=== PATIENT | male | born 1975 | race Caucasian/White ===

== ENCOUNTER 2018-11-09 11:30 | Day surgery (SDC) | payer BC ==
[~2018-11-09 11:30] MED LIST: CEFAZOLIN 2 GM/50 ML (PMX) 50 ML (FOR WT < 120 KG) IVPB
[2018-11-09] MEDS: LACTATED RINGER'S 1,000 ML IV (12:41)
[2018-11-09] MEDS ORDERED: GLYCOPYRROLATE 0.4 MG INJ (13:34)
[2018-11-09] MEDS ORDERED: PROPOFOL 20 ML (13:34)
[2018-11-09] MEDS ORDERED: CEFAZOLIN 1 GM INJ (13:34)
[2018-11-09] MEDS ORDERED: ROCURONIUM 50 MG INJ (13:34)
[2018-11-09] MEDS ORDERED: NEOSTIGMINE 3 MG/3 ML SYRINGE (13:34)
[2018-11-09] MEDS ORDERED: MIDAZOLAM 1 MG/ML 2 ML INJ (13:36)
[2018-11-09] MEDS ORDERED: FENTAnyl 50 MCG/ML VIAL ×2 (13:36→14:29)
[2018-11-09] MEDS ORDERED: DEXAMETHASONE 4 MG/ML 5 ML INJ (13:36)
[2018-11-09] MEDS ORDERED: ONDANSETRON 4 MG INJ (13:36)
[2018-11-09] MEDS ORDERED: hydrALAzine 20 MG INJ IV (14:00)
[2018-11-09] MEDS ORDERED: MEPERIDINE 25 MG INJ IV (14:00)
[2018-11-09] MEDS ORDERED: LABETALOL HCL 20MG INJ IV (14:00)
[2018-11-09] MEDS ORDERED: ALBUTEROL 0.083% (NEB) 2.5 MG/3 ML AMP HHN (14:00)
[2018-11-09] MEDS ORDERED: OXYCODONE/ACETAMINOPHEN (5/325) TAB PO (14:00)
[2018-11-09] MEDS ORDERED: ONDANSETRON 4 MG INJ IV (14:00)
[2018-11-09] MEDS ORDERED: IPRATROPIUM (NEB) 0.5 MG/2.5 ML AMP HHN (14:00)
[2018-11-09] MEDS ORDERED: FENTAnyl 50 MCG/ML VIAL IV ×2 (14:00)
[2018-11-09] MEDS ORDERED: MIDAZOLAM 1 MG/ML 2 ML INJ IV (14:00)
[2018-11-09] MEDS ORDERED: HYDROmorphONE 1 MG/5 ML IV SYRINGE IV ×2 (14:00)
[2018-11-09] MEDS ORDERED: TRIMETHOBENZAMIDE 100 MG/ML VIAL IM (14:00)
[2018-11-09] MEDS ORDERED: EPHEDrine 25 MG/5 ML SYG IV (14:00)
[2018-11-09] MEDS ORDERED: DIPHENHYDRAMINE 50 MG INJ IV (14:00)
[2018-11-09] MEDS: BUPIVACAINE 0.25% (MPF) 30 ML INJ (14:57)
[2018-11-09] MEDS: BACITRACIN/POLYMYXIN 28.35 GM OINT TOP (16:21)
[2018-11-09] MEDS: FENTAnyl 50 MCG/ML VIAL IV (16:49)
[2018-11-09] MEDS: HYDROmorphONE 1 MG/5 ML IV SYRINGE IV (16:51)
[2018-11-09] MEDS: OXYCODONE/ACETAMINOPHEN (5/325) TAB PO (17:22)
== END 2018-11-09 18:12 | disposition home or self-care (01) ==
LOC: SDS 11:30
DX: S64.493A Injury of digital nerve of left middle finger, initial encounter (principal); W25.XXXA Contact with sharp glass, initial encounter
CPT/HCPCS: 64912